=== PATIENT | male | born 1995 | race Caucasian/White ===

== ENCOUNTER 2021-05-11 11:00 | Emergency (ER) | payer OTHER ==
[2021-05-11 11:06] VITALS: RESP 18; TEMP 98.2
[2021-05-11] MEDS ORDERED: SODIUM CHLORIDE 0.9% 1,000 ML IV STA (11:12)
[2021-05-11] MEDS ORDERED: ONDANSETRON 4 MG/2 ML VIAL IVP STA (11:12)
[2021-05-11] MEDS ORDERED: KETOROLAC 15 MG/ML 1 ML VIAL IVP STA (11:12)
[2021-05-11 11:33] LABS: Basophils % (A) 0 %; Eosinophils # (A) 0.1 k/uL (0-0.7); Eosinophils % (A) 1 %; HCT 47.6 % (39.0-53.0); HGB 16.9 gm/dL (13.0-17.5); Lymphocytes # (A) 0.9 k/uL (1.0-4.8); Lymphocytes % (A) 11 %; MCH 34.4 pg (25.0-35.0); MCHC 35.5 g/dL (31.0-37.0); MCV 96.9 fL (80.0-100.0); Mean Platelet Volume 6.9; Monocytes # (A) 0.7 k/uL (0-1.0); Monocytes % (A) 8 %; Neutrophils # (A) 6.1 k/uL (1.3-7.7); Neutrophils % (A) 78 %; Platelet Count 245 k/uL (150-450); RBC 4.91 m/uL (4.30-5.90); RDW 12.4 % (11.5-15.5); WBC 7.8 k/uL (3.8-10.6)
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
[2021-05-11 11:42] LABS: ALT 40 U/L (4-49); AST 42 U/L (17-59); African American GFR (CKD) >90 (>60 ml/min/1.73 sqM); Albumin 4.4 g/dL (3.5-5.0); Alkaline Phosphatase 81 U/L (38-126); Amylase 55 U/L (30-110); Anion Gap 7 mmol/L; Blood Urea Nitrogen 15 mg/dL (9-20); Calcium 8.9 mg/dL (8.4-10.2); Carbon Dioxide 27 mmol/L (22-30); Chloride 101 mmol/L (98-107); Glucose 107 mg/dL (74-99); Lipase 55 U/L (23-300); Non-African American GFR(CKD) >90 (>60 ml/min/1.73 sqM); Potassium 3.3 mmol/L (3.5-5.1); Sodium 135 mmol/L (137-145); Total Bilirubin 1.1 mg/dL (0.2-1.3); Total Protein 7.5 g/dL (6.3-8.2)
--- NOTE | 2021-05-11 12:08 | CT ---
EXAMINATION TYPE: CT abdomen pelvis w con DATE OF EXAM: 05/11/2021 COMPARISON: None. HISTORY: LUQ pain CT DLP: 1032.4 mGycm, Automated Exposure Control for Dose Reduction was Utilized. CONTRAST: CT scan of the abdomen and pelvis is performed without oral but with IV Contrast, patient injected wi th 100ml mL of Isovue 370. FINDINGS: LUNG BASES: No significant abnormality is appreciated. LIVER/GB: Visualized liver is heterogeneously hypodense suggesting diffuse fatty infiltration. PANCREAS: No significant abnormality is seen. SPLEEN: Small splenule in splenic hilum axial image 25 is present. ADRENALS: No significant abnormality is seen. KIDNEYS: Symmetric cortical medullary uptake and excretion without hydronephrosis seen bilaterally. BOWEL: Suboptimal evaluation of bowel without enteric contrast. No suspicious small and large bowel d ilatation. Normal-appearing appendix from the cecum noted. Small focal small bowel into small bowel i ntussusception axial images 41 through 45. This corresponds to coronal image 36. No significant proxi mal dilatation. No obvious focal mass. PROSTATE/SEMINAL VESICLES: No gross abnormality seen. LYMPH NODES: No greater than 1cm abdominal or pelvic lymph nodes are appreciated. OSSEOUS STRUCTURES: No significant abnormality is seen. OTHER: No significant additional abnormality is seen. IMPRESSION: Small focal small bowel into small bowel intussusception left mid abdomen may account for patient's symptoms. No bowel obstruction or CT evidence for ischemia. No obvious leading mass at thi s level.
[2021-05-11] MEDS ORDERED: HYDROcodone/APAP 5-325MG 1 EACH TAB PO STA (12:54)
[2021-05-11 13:27] LABS: Appearance,Urine Clear (Clear); Bilirubin,Urine Negative (Negative); Blood,Urine Negative (Negative); Color,Urine Yellow; Glucose,Urine (UA) Negative (Negative); Ketones,Urine 1+ (Negative); Leukocyte Esterase,Urine Negative (Negative); Nitrite,Urine Negative (Negative); Protein,Urine Trace (Negative)
[2021-05-11 13:32] LABS: Specific Gravity,Urine >1.050 (1.001-1.035)
--- NOTE | 2021-05-11 15:11 | US ---
EXAMINATION TYPE: US abdomen complete DATE OF EXAM: 05/11/2021 COMPARISON: CT abdomen and pelvis earlier today CLINICAL HISTORY: progressing LUQ pain. LUQ pain for 2 days. nausea EXAM MEASUREMENTS: Liver Length: 16.0 cm Gallbladder Wall: 0.2 cm CBD: 0.4 cm Spleen: 12.8 cm Right Kidney: 10.8 x 5.4 x 4.7 cm Left Kidney: 10.1 x 6.0 x 4.9 cm *technical limitations due to large amount of overlying bowel content Pancreas: Obscured by bowel gas Liver: best seen intercostally, visualized portions appear wnl Gallbladder: no evidence of stones Evidence for sonographic Montanez's sign: no CBD: appears wnl Spleen: accessory spleen = 1.5cm Right Kidney: no evidence of hydronephrosis Left Kidney: no evidence of hydronephrosis Upper IVC: wnl Abd Aorta: visualized portions appear wnl, proximal aorta and bifurcation obscured The visualized liver is heterogeneously hyperechoic consistent with diffuse fatty infiltration. The intrahepatic portion of the IVC and visualized abdominal aorta are within normal limits. There is no evidence of shadowing mobile cholelithiasis. Common bile duct is within normal limits. Pancreas sub optimally seen on ultrasound but appeared within normal limits on CT earlier today. The spleen is up per limits of normal in size. Small splenule in splenic hilum is redemonstrated. Kidneys are symmetr ic and free of hydronephrosis. No renal lesions are seen on images saved. IMPRESSION: No acute findings are evident.
[2021-05-11] MEDS ORDERED: MAG HYDROX/AL HYDROX/SIMETH 30 ML, HYOSCYAMINE ELIXIR 10 ML, LIDOCAINE VISCOUS 2% 10 ML PO STA ×3 (15:24)
[2021-05-11] MEDS ORDERED: ONDANSETRON 4 MG ODT STARTER PACK 2 TAB BTL PO STA (16:09)
[2021-05-11] MEDS ORDERED: traMADol 50 MG STARTER PACK 3 TAB BTL PO STA (16:09)
[2021-05-11 16:19] VITALS: BP 120/82; PULSE 89
== END 2021-05-11 16:25 | disposition home or self-care (01) ==
LOC: EC 11:00
DX: R10.12 Left upper quadrant pain (principal); F17.200 Nicotine dependence, unspecified, uncomplicated
CPT/HCPCS: 36415; 80053; 82150; 83605; 83690; 85025; 81003; 76700; 74177; 99284; 96374; 96375; 96361; J2405; J1885; S0119; Q9967

== ENCOUNTER 2022-02-25 13:43 | Emergency (ER) | payer OTHER ==
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
[2022-02-25 16:36] LABS: Basophils % (A) 1 %; Eosinophils # (A) 0.1 k/uL (0-0.7); Eosinophils % (A) 1 %; HCT 44.4 % (39.0-53.0); HGB 15.8 gm/dL (13.0-17.5); Lymphocytes # (A) 2.3 k/uL (1.0-4.8); Lymphocytes % (A) 33 %; MCH 34.6 pg (25.0-35.0); MCHC 35.5 g/dL (31.0-37.0); MCV 97.4 fL (80.0-100.0); Mean Platelet Volume 7.1; Monocytes # (A) 0.4 k/uL (0-1.0); Monocytes % (A) 7 %; Neutrophils # (A) 3.8 k/uL (1.3-7.7); Neutrophils % (A) 56 %; Platelet Count 290 k/uL (150-450); RBC 4.56 m/uL (4.30-5.90); RDW 12.2 % (11.5-15.5); WBC 6.8 k/uL (3.8-10.6)
[2022-02-25 16:47] LABS: ALT 48 U/L (4-49); AST 62 U/L (17-59); African American GFR (CKD) >90 (>60 ml/min/1.73 sqM); Albumin 5.1 g/dL (3.5-5.0); Alkaline Phosphatase 69 U/L (38-126); Anion Gap 14 mmol/L; Blood Urea Nitrogen 13 mg/dL (9-20); Calcium 9.3 mg/dL (8.4-10.2); Carbon Dioxide 21 mmol/L (22-30); Chloride 107 mmol/L (98-107); Glucose 105 mg/dL (74-99); Non-African American GFR(CKD) >90 (>60 ml/min/1.73 sqM); Potassium 4.4 mmol/L (3.5-5.1); Sodium 142 mmol/L (137-145); Total Bilirubin 0.6 mg/dL (0.2-1.3); Total Protein 8.3 g/dL (6.3-8.2)
[2022-02-25] MEDS ORDERED: KETOROLAC 15 MG/ML 1 ML VIAL IM STA (17:46)
[2022-02-25 17:49] VITALS: RESP 18; TEMP 97.8
[2022-02-25] MEDS ORDERED: IBUPROFEN 800 MG TAB PO STA (18:04)
[2022-02-25] MEDS ORDERED: ACETAMINOPHEN TAB 500 MG TAB PO STA (18:04)
[2022-02-25 18:38] VITALS: BP 126/83; PULSE 88
== END 2022-02-25 18:37 | disposition home or self-care (01) ==
LOC: EC 13:43
DX: R10.12 Left upper quadrant pain (principal); F17.200 Nicotine dependence, unspecified, uncomplicated
CPT/HCPCS: 36415; 80053; 85025; 74176; 99284; 96372; J1885